=== PATIENT | female | born 1945 | race Caucasian/White ===

== ENCOUNTER → 2017-12-23 | Outpatient (CLI) | payer OTHER ==
[~2017-12-23] MED LIST: WARF5
[2017-12-26 10:32] LABS: HPV Genotype 16 Not Detected (NOTDET); HPV Genotype 18 Not Detected (NOTDET)
[2017-12-30 11:10] LABS: HPV High Risk Other Not Detected (NOTDET)
== END ==
LOC: OLS 13:51 → LAB SHORT 13:51
PROVIDERS: Nurse Practitioner Women's Health
DX: Z12.72 Encounter for screening for malignant neoplasm of vagina (principal); Z91.89 Other specified personal risk factors, not elsewhere classified
CPT/HCPCS: 87624; G0123

== ENCOUNTER → 2018-09-17 | Outpatient (CLI) | payer OTHER | END | disposition home or self-care (01) | LOC: LAB EV 12:50 → LAB SHORT 12:50 | DX: J02.9 Acute pharyngitis, unspecified (principal) | CPT/HCPCS: 87070 ==

== ENCOUNTER → 2019-08-20 | Outpatient (CLI) | payer OTHER | END | disposition home or self-care (01) | LOC: LAB SHORT 14:45 → LAB EV 14:45 | DX: N39.0 Urinary tract infection, site not specified (principal) | CPT/HCPCS: 87086 ==

== ENCOUNTER → 2021-01-18 | Outpatient (CLI) | payer OTHER | LOC: PLD 14:46 → LAB EV 14:46 → LAB SHORT 14:46 | DX: N39.0 Urinary tract infection, site not specified (principal); Z88.0 Allergy status to penicillin; Z88.5 Allergy status to narcotic agent | CPT/HCPCS: 87077; 87086; 87186 ==

== ENCOUNTER → 2021-01-21 | Outpatient (CLI) | payer OTHER ==
[2021-01-21 14:34] LABS: BASOPHILS ABSOLUTE AUTO 0.04 K/mm3 (0.00-0.23); BASOPHILS PERCENT AUTO 1 % (0-2); EOSINOPHILS ABSOLUTE AUTO 0.03 K/mm3 (0.00-0.68); EOSINOPHILS PERCENT AUTO 0 % (0-6); Hematocrit 49.2 % (33.0-51.0); Hemoglobin 16.9 g/dL (11.5-16.0); IMMATURE GRAN ABSOLUTE AUTO 0.02 K/mm3 (0.00-0.10); IMMATURE GRAN PERCENT AUTO 0 % (0-1); LYMPHOCYTES ABSOLUTE AUTO 1.42 K/mm3 (0.84-5.20); LYMPHOCYTES PERCENT AUTO 21 % (21-46); MONOCYTES ABSOLUTE AUTO 0.39 K/mm3 (0.16-1.47); MONOCYTES PERCENT AUTO 6 % (4-13); Mean Corpuscular HGB 30.8 pg (26.0-34.0); Mean Corpuscular HGB Conc 34.3 g/dL (31.5-36.5); Mean Corpuscular Volume 90 fL (80-100); NEUTROPHILS ABSOLUTE AUTO 4.94 K/mm3 (1.96-9.15); NEUTROPHILS PERCENT AUTO 72 % (41-73); Platelet Count 236 K/mm3 (150-400); RDW Coefficient Variation 12.6 % (11.7-14.2); RDW Standard Deviation 41.6 fL (35.1-46.3); Red Blood Cell Count 5.49 M/mm3 (3.80-5.20); White Blood Cell Count 6.84 K/mm3 (4.00-11.30)
[2021-01-21 14:43] LABS: Albumin, Blood 3.8 g/dL (3.4-5.0); Albumin/Globulin Ratio 1.1 (0.8-1.8); Bilirubin, Total 0.6 mg/dL (0.1-1.0); Bun/Creatinine Ratio 10.3 (12.0-20.0); Calcium, Blood 9.1 mg/dL (8.5-10.1); Creatinine, Blood 0.97 mg/dL (0.40-1.00); Globulin, Blood 3.4 g/dL (2.2-4.0); Potassium, Blood 3.6 mmol/L (3.5-5.5); Total Protein, Blood 7.2 g/dL (6.4-8.2)
== END | disposition home or self-care (01) ==
LOC: LAB EV 14:30 → LAB SHORT 14:30
PROVIDERS: General Practice
DX: R53.81 Other malaise (principal)
CPT/HCPCS: 80053; 85025

== ENCOUNTER → 2021-06-05 | Outpatient (CLI) | payer OTHER | END | disposition home or self-care (01) | LOC: LAB SHORT 17:18 | DX: R10.9 Unspecified abdominal pain (principal) | CPT/HCPCS: 87077; 87086; 87186 ==

== ENCOUNTER 2022-03-16 12:00 | Day surgery (SDC) | payer OTHER ==
[~2022-03-16] VITALS: Ht 154.9 cm; Wt 46.8 kg
[2022-03-16] MEDS ORDERED: PROLIA60 MG/1 ML (12:25)
[2022-03-16] MEDS ORDERED: DULO30 (12:25)
[2022-03-16] MEDS ORDERED: PSEU120ER (12:26)
[2022-03-16] MEDS ORDERED: LORA10ER (12:26)
[2022-03-16] MEDS ORDERED: MELO7.5 (12:26)
[2022-03-16] MEDS ORDERED: ACET325 (12:27)
== END 2022-03-16 14:11 | disposition home or self-care (01) ==
LOC: ORSCSDS 12:00
PROVIDERS: Internal Medicine Gastroenterology
PROC: 0DBM8ZX Excision of Descending Colon, Via Natural or Artificial Opening Endoscopic, Diagnostic (ICD-10-PCS; principal; 2022-03-16 13:15)
DX: Z12.11 Encounter for screening for malignant neoplasm of colon (principal); Z85.048 Personal history of other malignant neoplasm of rectum, rectosigmoid junction, and anus; D12.4 Benign neoplasm of descending colon; K57.30 Diverticulosis of large intestine without perforation or abscess without bleeding; Z79.82 Long term (current) use of aspirin; Z79.899 Other long term (current) drug therapy
CPT/HCPCS: 88305; J2704; J7120

== ENCOUNTER 2022-07-06 11:06 | Emergency (ER) | payer OTHER ==
[~2022-07-06] VITALS: Ht 152.4 cm; Wt 47.2 kg
[~2022-07-06 11:06] MED LIST changes: +ACET325; +DULO30; +LORA10ER; +MELO7.5; +PROLIA60 MG/1 ML; +PSEU120ER
[2022-07-06 11:50] LABS: BASOPHILS ABSOLUTE AUTO 0.03 K/mm3 (0.00-0.23); BASOPHILS PERCENT AUTO 0 % (0-2); EOSINOPHILS PERCENT AUTO 0 % (0-6); Hematocrit 44.5 % (33.0-51.0); Hemoglobin 15.3 g/dL (11.5-16.0); IMMATURE GRAN ABSOLUTE AUTO 0.08 K/mm3 (0.00-0.10); IMMATURE GRAN PERCENT AUTO 1 % (0-1); LYMPHOCYTES ABSOLUTE AUTO 0.87 K/mm3 (0.84-5.20); LYMPHOCYTES PERCENT AUTO 5 % (21-46); MONOCYTES ABSOLUTE AUTO 0.77 K/mm3 (0.16-1.47); MONOCYTES PERCENT AUTO 4 % (4-13); Mean Corpuscular HGB 31.5 pg (26.0-34.0); Mean Corpuscular HGB Conc 34.4 g/dL (31.5-36.5); Mean Corpuscular Volume 92 fL (80-100); Mean Platelet Volume 10.2 fL (9.1-12.4); NEUTROPHILS ABSOLUTE AUTO 15.84 K/mm3 (1.96-9.15); NEUTROPHILS PERCENT AUTO 90 % (41-73); Platelet Count 269 K/mm3 (150-400); RDW Coefficient Variation 12.9 % (11.7-14.2); RDW Standard Deviation 43.5 fL (35.1-46.3); Red Blood Cell Count 4.86 M/mm3 (3.80-5.20); White Blood Cell Count 17.59 K/mm3 (4.00-11.30)
[2022-07-06 12:02] LABS: Albumin, Blood 3.3 g/dL (3.4-5.0); Bun/Creatinine Ratio 17.7 (12.0-20.0); Calcium, Blood 8.7 mg/dL (8.5-10.1); Creatinine, Blood 1.24 mg/dL (0.40-1.00); Globulin, Blood 3.3 g/dL (2.2-4.0); Potassium, Blood 4.4 mmol/L (3.5-5.5); Total Protein, Blood 6.6 g/dL (6.4-8.2)
[2022-07-06 12:25] LABS: Source, Urine Foley catheter
[2022-07-06 12:34] LABS: Appearance, Urine Clear (Clear); Bilirubin, Urine Neg (Neg); Blood, Urine 5+ (Neg); Color, Urine Amber (P-Yellow); Glucose Qualitative, Urine Neg (Neg); Ketones, Urine Neg (Neg); Leukocyte Esterase, Urine 3+ (Neg); Nitrite, Urine Neg (Neg); Protein, Urine 3+ (Neg); Urobilinogen, Urine NORM (Normal); pH, Urine 6.5 (5.0-8.0)
[2022-07-06 12:55] LABS: Red Blood Cells, Urine TNTC /hpf (0-2); White Blood Cells, Urine 25-50 /hpf (0-5)
[2022-07-06 12:56] LABS: Bacteria Mod /hpf; Squamous Epithelial Cells Not Seen /hpf (Few); Transitional Epithelial Cells Few /hpf (0-Rare)
[2022-07-06 14:27] LABS: Influenza A, PCR NEGATIVE (NEGATIVE); Influenza B, PCR NEGATIVE (NEGATIVE); Resp Syncytial Virus, PCR NEGATIVE (NEGATIVE); SARS-Cov-2 (COVID-19) PCR, MMC NEGATIVE (NEGATIVE)
[2022-07-06 15:02] LABS: BASOPHILS ABSOLUTE AUTO 0.02 K/mm3 (0.00-0.23); BASOPHILS PERCENT AUTO 0 % (0-2); EOSINOPHILS PERCENT AUTO 0 % (0-6); Hematocrit 39.8 % (33.0-51.0); Hemoglobin 13.5 g/dL (11.5-16.0); IMMATURE GRAN ABSOLUTE AUTO 0.05 K/mm3 (0.00-0.10); IMMATURE GRAN PERCENT AUTO 0 % (0-1); LYMPHOCYTES ABSOLUTE AUTO 1.11 K/mm3 (0.84-5.20); LYMPHOCYTES PERCENT AUTO 8 % (21-46); MONOCYTES ABSOLUTE AUTO 0.68 K/mm3 (0.16-1.47); MONOCYTES PERCENT AUTO 5 % (4-13); Mean Corpuscular HGB 31.1 pg (26.0-34.0); Mean Corpuscular HGB Conc 33.9 g/dL (31.5-36.5); Mean Corpuscular Volume 92 fL (80-100); Mean Platelet Volume 10.5 fL (9.1-12.4); NEUTROPHILS ABSOLUTE AUTO 12.61 K/mm3 (1.96-9.15); NEUTROPHILS PERCENT AUTO 87 % (41-73); Platelet Count 210 K/mm3 (150-400); RDW Coefficient Variation 12.8 % (11.7-14.2); RDW Standard Deviation 43.2 fL (35.1-46.3); Red Blood Cell Count 4.34 M/mm3 (3.80-5.20); White Blood Cell Count 14.47 K/mm3 (4.00-11.30)
[2022-07-06 15:21] LABS: Albumin, Blood 2.8 g/dL (3.4-5.0); Albumin/Globulin Ratio 0.9 (0.8-1.8); Bilirubin, Total 0.9 mg/dL (0.1-1.0); Bun/Creatinine Ratio 19.8 (12.0-20.0); Calcium, Blood 8.6 mg/dL (8.5-10.1); Creatinine, Blood 1.01 mg/dL (0.40-1.00); Globulin, Blood 3.1 g/dL (2.2-4.0); Potassium, Blood 4.1 mmol/L (3.5-5.5); Total Protein, Blood 5.9 g/dL (6.4-8.2)
[2022-07-06] MEDS ORDERED: OXAYDO5 M1 PO (15:49)
[2022-07-06] MEDS ORDERED: SULTRIDS PO (15:49)
== END 2022-07-06 16:29 | disposition home or self-care (01) ==
LOC: ER 11:06
PROVIDERS: Student in an Organized Health Care Education/Training Program
DX: G89.18 Other acute postprocedural pain (principal); R50.82 Postprocedural fever; N39.0 Urinary tract infection, site not specified; D72.829 Elevated white blood cell count, unspecified; Z88.0 Allergy status to penicillin; Z88.5 Allergy status to narcotic agent; Z79.899 Other long term (current) drug therapy; Z20.822 Contact with and (suspected) exposure to COVID-19
CPT/HCPCS: 0241U; 36415; 71045; 80053; 81001; 83605; 85025; 87086; A9270; J0696; J3010; J7030

== ENCOUNTER → 2022-07-27 | Outpatient (CLI) | payer OTHER ==
[~2022-07-27] MED LIST changes: +OXAYDO5 M1 PO; +SULTRIDS PO
== END | disposition home or self-care (01) ==
DX: N39.0 Urinary tract infection, site not specified (principal)

== ENCOUNTER → 2022-08-07 | Outpatient (CLI) | payer OTHER | END | disposition home or self-care (01) | LOC: LAB SHORT 13:24 → LAB 13:24 | DX: N39.0 Urinary tract infection, site not specified (principal) | CPT/HCPCS: 87077; 87086; 87186 ==

== ENCOUNTER 2023-04-22 14:39 | Inpatient (IN) | payer OTHER ==
[~2023-04-22] VITALS: Ht 154.9 cm; Wt 48.0 kg
[2023-04-22 15:18] LABS: BASOPHILS ABSOLUTE AUTO 0.03 K/mm3 (0.00-0.23); BASOPHILS PERCENT AUTO 0 % (0-2); EOSINOPHILS ABSOLUTE AUTO 0.06 K/mm3 (0.00-0.68); EOSINOPHILS PERCENT AUTO 1 % (0-6); Hematocrit 36.4 % (33.0-51.0); Hemoglobin 12.5 g/dL (11.5-16.0); IMMATURE GRAN ABSOLUTE AUTO 0.15 K/mm3 (0.00-0.10); IMMATURE GRAN PERCENT AUTO 2 % (0-1); LYMPHOCYTES ABSOLUTE AUTO 0.57 K/mm3 (0.84-5.20); LYMPHOCYTES PERCENT AUTO 7 % (21-46); MONOCYTES ABSOLUTE AUTO 0.81 K/mm3 (0.16-1.47); MONOCYTES PERCENT AUTO 10 % (4-13); Mean Corpuscular HGB 30.7 pg (26.0-34.0); Mean Corpuscular HGB Conc 34.3 g/dL (31.5-36.5); Mean Corpuscular Volume 89 fL (80-100); Mean Platelet Volume 11.4 fL (9.1-12.4); NEUTROPHILS ABSOLUTE AUTO 6.28 K/mm3 (1.96-9.15); NEUTROPHILS PERCENT AUTO 79 % (41-73); Platelet Count 143 K/mm3 (150-400); RDW Coefficient Variation 13.5 % (11.7-14.2); RDW Standard Deviation 44.6 fL (35.1-46.3); Red Blood Cell Count 4.07 M/mm3 (3.80-5.20)
[2023-04-22 15:21] LABS: Source, Urine Clean Catch
[2023-04-22 15:25] LABS: Appearance, Urine Cloudy (Clear); Bilirubin, Urine Neg (Neg); Blood, Urine 5+ (Neg); Color, Urine Yellow (P-Yellow); Glucose Qualitative, Urine Neg (Neg); Ketones, Urine Neg (Neg); Leukocyte Esterase, Urine 3+ (Neg); Nitrite, Urine Neg (Neg); Protein, Urine 3+ (Neg); Urobilinogen, Urine NORM (Normal)
[2023-04-22 15:34] LABS: Albumin, Blood 2.4 g/dL (3.4-5.0); Albumin/Globulin Ratio 0.6 (0.8-1.8); Bilirubin, Total 0.9 mg/dL (0.1-1.0); Calcium, Blood 8.4 mg/dL (8.5-10.1); Creatinine, Blood 3.26 mg/dL (0.40-1.00); Potassium, Blood 4.4 mmol/L (3.5-5.5); Total Protein, Blood 6.4 g/dL (6.4-8.2)
[2023-04-22 15:49] LABS: Bacteria Many /hpf; Red Blood Cells, Urine TNTC /hpf (0-2); Squamous Epithelial Cells Few /hpf (Few); White Blood Cells, Urine TNTC /hpf (0-5)
[2023-04-22] MEDS ORDERED: ONDA4 PO (18:28)
[2023-04-22] MEDS ORDERED: LOSARTAN POTASS25 M2 PO (18:28)
[2023-04-22] MEDS ORDERED: ARIPIPRAZOLE2 M1 PO (18:28)
[2023-04-22] MEDS ORDERED: TRAM50 (18:29)
[2023-04-22] MEDS ORDERED: SPIRIVA RESPIMAT4 G3 IH (18:29)
[2023-04-22] MEDS ORDERED: CYMBALTA30 M2 PO (18:29)
[2023-04-22 23:47] VITALS: BP 150/83
[2023-04-23] VITALS (11 sets, daily range): BP systolic 100–151; BP diastolic 45–91
--- NOTE | 2023-04-23 01:30 | NUR ---
ARRIVAL TO PCU: RECEIVED REPORT FROM RN ANESTHETIST BEBA ELAM ~2331 ON 04/22/23, PT SHORTLY ARRIVED TO PCU. ARRIVED VIA GURNEY, SBA TRANSFER TO PCU BED. A/Ox4 AND COOPERATIVE WITH CARE. ANSWERS QUESTIONS APPROPRIATELY AND ABLE TO MAKE HER NEED KNOWN. PERRLA WITH GROSS MOVEMENTS/STRENGTH EQUAL BILAT. DENIES TINGLING OR SENSATION LOSS. CARDIAC, TELE MONITOR SHOWS SR 70-90'S WIHT NO C/O CP OR PRESSURE. REPORTS INTERMITTENT EPISODES OF DIZZINESS HOWEVER. SBP STABLE RANGING 110-150'S. RESPIRATORY, MAINTAINS SPO2 >94% ON RA WITH NO REPORTS OF SOB OR DYSPNEA EVEN WITH ABULATION. LS CLEAR T/O ALL LUNG SILVA. GI/, REPORTS LEFT FLANK/ABD PAIN, ABD SOFT BUT TENDER TO PALPITATION. LAST REPORTS BM ON 04/18/23. ABLE VOID CLOUDY/JENNY COLORED URINE. UA COLLECTED IN ER WITH CULTURE PENDING RESULTS. ABLE TO WALK W/O STAFF ASSIST, BUT REPORTS SOME INTERMITTENT UNSTEADNIESS. WILL MAKE SBA FOR SAFETY PRECAUTIONS. PER RN ANESTHETIST REPORTS, DR. JACOBSON CONSULTED IN ER FOR POSSIBLE PROCEDURE TOMORROW. PAIN MANAGED PER EMAR. NS INFUSING ORDERED VIA EMAR. ASSESSED PT FOR RISKS OF ANY IGNITION SOURCES WELL BEHAVIORS FOR INCREASED RISKS OF FIRE DANGER. PT EDUCATED ON COMMON SOURCES OF IGNITION WELL NEED TO KEEP A SAFE ENVIRONMENT. PT VOICED UNDERSTANDING. WILL CONTINUE TO PROCESS MD ORDERS. DAYDAY MINOR UPON ARRIVAL TO PCU
[2023-04-23 03:54] LABS: BASOPHILS ABSOLUTE AUTO 0.03 K/mm3 (0.00-0.23); BASOPHILS PERCENT AUTO 0 % (0-2); EOSINOPHILS ABSOLUTE AUTO 0.05 K/mm3 (0.00-0.68); EOSINOPHILS PERCENT AUTO 1 % (0-6); Hematocrit 32.4 % (33.0-51.0); Hemoglobin 10.9 g/dL (11.5-16.0); IMMATURE GRAN ABSOLUTE AUTO 0.18 K/mm3 (0.00-0.10); IMMATURE GRAN PERCENT AUTO 2 % (0-1); LYMPHOCYTES ABSOLUTE AUTO 0.49 K/mm3 (0.84-5.20); LYMPHOCYTES PERCENT AUTO 6 % (21-46); MONOCYTES PERCENT AUTO 11 % (4-13); Mean Corpuscular HGB 30.2 pg (26.0-34.0); Mean Corpuscular HGB Conc 33.6 g/dL (31.5-36.5); Mean Corpuscular Volume 90 fL (80-100); Mean Platelet Volume 11.5 fL (9.1-12.4); NEUTROPHILS ABSOLUTE AUTO 6.78 K/mm3 (1.96-9.15); NEUTROPHILS PERCENT AUTO 80 % (41-73); Platelet Count 143 K/mm3 (150-400); RDW Coefficient Variation 13.3 % (11.7-14.2); RDW Standard Deviation 44.6 fL (35.1-46.3); Red Blood Cell Count 3.61 M/mm3 (3.80-5.20); White Blood Cell Count 8.43 K/mm3 (4.00-11.30)
[2023-04-23 04:22] LABS: Albumin/Globulin Ratio 0.6 (0.8-1.8); Bilirubin, Total 0.6 mg/dL (0.1-1.0); Bun/Creatinine Ratio 19.7 (12.0-20.0); Calcium, Blood 7.7 mg/dL (8.5-10.1); Creatinine, Blood 2.99 mg/dL (0.40-1.00); Globulin, Blood 3.1 g/dL (2.2-4.0); Potassium, Blood 3.9 mmol/L (3.5-5.5); Total Protein, Blood 5.1 g/dL (6.4-8.2)
--- NOTE | 2023-04-23 05:16 | NUR ---
SHIFT SUMMARY NO ACUTE CHANGES FROM ARRIVAL TO PCU NOTE. SEE NOTE FOR MORE DETAILS. PT MADE NPO FOR POTENTIAL PROCEDURE THIS AM WITH DR. Massey. HAS BEEN NPO SINCE MDN IN LIGHT OF THIS PLAN OF CARE. PT UPDATED ON PLAN OF CARE WITH ALL QUESTIONS ANSWERED. NS RUNNING AT 100ML/HR PER EMAR. PAIN MANAGED WELL WITH PRN TYLENOL. NO NEW ORDERS AT THIS TIME, WILL REPORT TO ONCOMING RN. DAYDAY MINOR OF THIS NOTE.
--- NOTE | 2023-04-23 17:57 | NUR ---
SHIFT SUMMARY; ASSUMED CARE AT 0700. A/A/OX4, AMBULATES WITH SBA, VSS. REPOSITIONS SELF IN BED NEEDED, USES CALL LIGHT AND ABLE TO MAKE NEEDS KNOWN. LEFT NEPHROSTOMY PLACED TODAY, DRAINING PINK/REDISH URINE. DRESSING TO SITE C/D/I. FAMILY AT BEDSIDE DURING SHIFT. WILL CONTINUE TO MONITOR AND TREAT UNTIL CHANGE OF SHIFT.
[2023-04-24 04:23] VITALS: BP 151/75
--- NOTE | 2023-04-24 06:54 | NUR ---
SHIFT SUMMARY PATIENT ALERT AND ORIENTED X4, INDEPENDENT IN HER ROOM. PATIENT MEDICATED PER EMAR FOR PAIN. PATIENT'S L NEPHROSTOMY IS PATENT AND DRAINING JENNY URINE. PATIENT WAS CONCERNED SHE HAS BEEN UNABLE TO URINATE SINCE YESTERDAY AFTERNOON. THIS RN BLADDER SCANNED THE PATIENT AND THERE WAS 0 ML IN HER BLADDER. SPO2>90% ON ROOM AIR, PATIENT HAD NO COMPLAINTS OF SHORTNESS OF BREATH. VITAL SIGNS STABLE, SINUS RHHYTHM IN THE 70'S ON TELE. NO ACUTE ISSUES NOTED OVERNIGHT. WILL CONTINUE TO MONITOR. CALL LIGHT WITHIN REACH.
[2023-04-24 07:21] VITALS: BP 140/75
--- NOTE | 2023-04-24 08:47 | NUR ---
ASSUMPTION OF CARE ASSUMED CARE AROUND 0700. VSS. PATIENT AFFECT IS PLEASANT, AOX4. POST OP DAY 1 FOR L NEPHROSTOMY W/ STENT. DRESSING C/D/I WITH MODERATE SEROSANGUINOUS DRAINAGE. PT REPORTS MILD L FLANK PAIN, PLAN TO IMPLEMENT PHARMACOLOGICAL AND NONPHARMACOLOGICAL INTERVENTIONS PRN. TOLERATING PO INTAKE. URINE IN NEPHROSTOMY BAG IS JENNY IN COLOR W/ NO ODOR. NO NEEDS AT THIS TIME. CALL LIGHT IS WITHIN REACH.
[2023-04-24 09:28] LABS: Albumin, Blood 2.2 g/dL (3.4-5.0); Anion Gap 7 mmol/L (6-16); Blood Urea Nitrogen 54 mg/dL (8-24); Bun/Creatinine Ratio 16.2 (12.0-20.0); CO2, Blood 25 mmol/L (21-32); Calcium, Blood 8.3 mg/dL (8.5-10.1); Chloride, Blood 112 mmol/L (98-108); Creatinine, Blood 3.33 mg/dL (0.40-1.00); Glomerular Filtration Rate 14 (60-); Glucose, Blood 139 mg/dL (70-99); Phosphorus, Blood 2.2 mg/dL (2.5-4.9); Sodium, Blood 144 mmol/L (136-145)
[2023-04-24 11:38] VITALS: BP 158/77
[2023-04-24 15:40] VITALS: BP 144/63
--- NOTE | 2023-04-24 18:27 | NUR ---
SHIFT SUMMARY NO ACUTE CHANGES THIS SHIFT. VSS. AOX4, EASILY AROUSABLE TO VERBAL STIMULI. L NEPHROSTOMY DRAINING JENNY URINE. PT OOB WITH SBA FROM STAFF. INDEPENDENT W/ PERSONAL CARE, SHOWERED TODAY. PAIN TOLERABLE WITH ORDERED DOSE OF TYLENOL. TOLERATING PO INTAKE. VISITORS AT BEDSIDE T/O SHIFT. CALL LIGHT WITHIN REACH. WILL REPORT TO ONCOMING RN.
[2023-04-24 21:54] VITALS: BP 130/71
[2023-04-24 23:50] VITALS: BP 137/63
[2023-04-25 04:13] LABS: BASOPHILS ABSOLUTE AUTO 0.03 K/mm3 (0.00-0.23); BASOPHILS PERCENT AUTO 0 % (0-2); EOSINOPHILS ABSOLUTE AUTO 0.15 K/mm3 (0.00-0.68); EOSINOPHILS PERCENT AUTO 2 % (0-6); Hematocrit 31.1 % (33.0-51.0); Hemoglobin 10.8 g/dL (11.5-16.0); IMMATURE GRAN ABSOLUTE AUTO 0.45 K/mm3 (0.00-0.10); IMMATURE GRAN PERCENT AUTO 5 % (0-1); LYMPHOCYTES ABSOLUTE AUTO 0.99 K/mm3 (0.84-5.20); LYMPHOCYTES PERCENT AUTO 11 % (21-46); MONOCYTES PERCENT AUTO 6 % (4-13); Mean Corpuscular HGB 30.4 pg (26.0-34.0); Mean Corpuscular HGB Conc 34.7 g/dL (31.5-36.5); Mean Corpuscular Volume 88 fL (80-100); Mean Platelet Volume 10.7 fL (9.1-12.4); NEUTROPHILS PERCENT AUTO 76 % (41-73); Platelet Count 275 K/mm3 (150-400); RDW Coefficient Variation 14.1 % (11.7-14.2); RDW Standard Deviation 45.3 fL (35.1-46.3); Red Blood Cell Count 3.55 M/mm3 (3.80-5.20); White Blood Cell Count 9.42 K/mm3 (4.00-11.30)
[2023-04-25 04:33] LABS: Anion Gap 6 mmol/L (6-16); Blood Urea Nitrogen 47 mg/dL (8-24); Bun/Creatinine Ratio 17.7 (12.0-20.0); CO2, Blood 24 mmol/L (21-32); Chloride, Blood 114 mmol/L (98-108); Creatinine, Blood 2.65 mg/dL (0.40-1.00); Glomerular Filtration Rate 18 (60-); Glucose, Blood 106 mg/dL (70-99); Phosphorus, Blood 3.2 mg/dL (2.5-4.9); Potassium, Blood 4.3 mmol/L (3.5-5.5); Sodium, Blood 144 mmol/L (136-145)
[2023-04-25 04:57] VITALS: BP 138/72
--- NOTE | 2023-04-25 06:58 | NUR ---
SHIFT SUMMARY PATIENT ALERT AND ORIENTED X4, INDEPENDENT IN HER ROOM. PATIENT MEDICATED PER EMAR FOR PAIN. ON ROOM AIR. VITAL SIGNS STABLE. NEPHROSTOMY DRAINING CLEAR, YELLOW URINE. NO ACUTE ISSUES NOTED OVERNIGHT. WILL CONTINUE TO MONITOR. CALL LIGHT WITHIN REACH.
[2023-04-25 07:51] VITALS: BP 146/78
--- NOTE | 2023-04-25 09:17 | NUR ---
ASSUMPTION OF CARE ASSUMED PATIENT CARE AT 0700. PT AOX4, EASILY AROUSABLE TO VERBAL STIMULI. PT IS PLEASANT, RECEPTIVE TO EDUCATION. CAN BE FORGETFUL AT TIMES. POD 2 L NEPHRECTOMY W/ STENT PLACEMENT. SITE IS C/D/I W/ A TEGADERM DRESSING, MILD SEROSANGUINOUS DRAINAGE. NEPHROSTOMY IS DRAINING YELLOW URINE. PT TOLERATING PO INTAKE, REPORTS A LACK OF APPETITE. PT COMPLAINING OF PAIN IN THE L FLANK RELATED TO NEPHROSTOMY PLACEMENT AND GENERALIZED BODY ACHES, MEDICATED PER EMAR W/ TYLENOL. PLAN IS TO DC HOME TODAY. NO NEEDS AT THIS TIME, CALL LIGHT WITHIN REACH
[2023-04-25] MEDS ORDERED: LEVFLO500 PO (10:41)
[2023-04-25] MEDS ORDERED: VISBIOME 112.51 EACH PO (10:41)
--- NOTE | 2023-04-25 11:15 | NUR ---
DISCHARGE SUMMARY PLACED ORDER FOR DISCHARGE. EDUCATION PROVIDED REGARDING MEDICATIONS AND PLAN FOR CONTINUED CARE OUTSIDE OF HOSPITAL. PT AGREES W/ PLAN, RECEPTIVE TO EDUCATION AND ASKED QUESTIONS. RMVD IV. PERSONAL BELONGINGS RETURNED TO PT. DRAINED NEPHROSTOMY BAG, RMVD TELE. FRIEND AT BEDSIDE, RECEPTIVE TO EDUCATION WELL AND IS DRIVING HER HOME. PT TRANSFERRED TO PERSONAL VEHICLE VIA WHEELCHAIR.
== END 2023-04-25 11:16 | disposition home or self-care (01) | DRG 690 ==
LOC: ER 14:39 → PCU 23:29
PROVIDERS: Family Medicine; Physician Assistant; ADMIT Internal Medicine
PROC: 0T773DZ Dilation of Left Ureter with Intraluminal Device, Percutaneous Approach (ICD-10-PCS; principal; 2023-04-23)
PROC: 0T9430Z Drainage of Left Kidney Pelvis with Drainage Device, Percutaneous Approach (ICD-10-PCS; 2023-04-23)
PROC: BT1F1ZZ Fluoroscopy of Left Kidney, Ureter and Bladder using Low Osmolar Contrast (ICD-10-PCS; 2023-04-23)
DX: N13.6 Pyonephrosis (principal); N17.9 Acute kidney failure, unspecified; N32.0 Bladder-neck obstruction; N18.9 Chronic kidney disease, unspecified; B96.20 Unspecified Escherichia coli [E. coli] as the cause of diseases classified elsewhere; Z85.528 Personal history of other malignant neoplasm of kidney; Z90.5 Acquired absence of kidney; Z85.3 Personal history of malignant neoplasm of breast; Z88.0 Allergy status to penicillin; Z88.5 Allergy status to narcotic agent; Z90.710 Acquired absence of both cervix and uterus; Z98.890 Other specified postprocedural states; Z79.899 Other long term (current) drug therapy; Z90.2 Acquired absence of lung [part of]; Z92.3 Personal history of irradiation; Z92.21 Personal history of antineoplastic chemotherapy; Z85.51 Personal history of malignant neoplasm of bladder
CPT/HCPCS: 36415; 50695; 74176; 76937; 80053; 80069; 81001; 85025; 87077; 87086; 87186; 94640; 94664; 94760; 96365; 96366; 96375; 99152; 99153; 99285-25; A9270; C1729; C1769; C1887; C1894; C2617; J0696; J1170; J2250; J3010; J7030; J7040; J7050; Q9967

== ENCOUNTER 2023-06-25 13:59 | Inpatient (IN) | payer OTHER ==
[~2023-06-25] VITALS: Ht 152.4 cm; Wt 47.1 kg
[~2023-06-25 13:59] MED LIST changes: -LOKELMA10 GM PO
[2023-06-25 17:11] LABS: Albumin, Blood 3.1 g/dL (3.4-5.0); Albumin/Globulin Ratio 0.9 (0.8-1.8); Bilirubin, Total 0.3 mg/dL (0.1-1.0); Bun/Creatinine Ratio 15.5 (12.0-20.0); Calcium, Blood 9.5 mg/dL (8.5-10.1); Creatinine, Blood 2.65 mg/dL (0.40-1.00); Globulin, Blood 3.3 g/dL (2.2-4.0); Potassium, Blood 6.1 mmol/L (3.5-5.5); Total Protein, Blood 6.4 g/dL (6.4-8.2)
[2023-06-25] MEDS ORDERED: DULO30 (21:24)
[2023-06-25 21:30] LABS: Bun/Creatinine Ratio 16.1 (12.0-20.0); Calcium, Blood 9.8 mg/dL (8.5-10.1); Creatinine, Blood 2.67 mg/dL (0.40-1.00); Potassium, Blood 5.1 mmol/L (3.5-5.5)
--- NOTE | 2023-06-25 22:11 | NUR ---
ADMIT NOTE *LATE ENTRY* PT ARRIVED TO FLOOR VIA GURNEY. PERSONAL POSSESSIONS WITH PATIENT. PATIENT ORIENTED TO UNIT. CALL BUTTON WITHIN REACH. LEFT NEPHROSTOMY TUBE IS NOT DRAINING, HOWEVER SHE IS ABLE TO URINATE. WE HAVE PUT A HAT IN THE TOILET TO MEASURE HER OUTPUT. TELEMETRY IS IN PLACE: TACHY @ 110.
--- NOTE | 2023-06-26 04:19 | NUR ---
SHIFT SUMMARY ADMITTED FOR MALFUNCTIONING LEFT NEPHROSTOMY. FULL CODE. PLAN IS FOR IR CONSULT TO REPLACE THE TUBE IF INDICATED. THIS IS THE PATIENT'S LAST REMAINING KIDNEY. TELEMETRY: NSR @ 95 BPM. SHE WAS HYPERKALEMIC ON ADMIT, BUT IS NOW TRENDING WNL. STANDBY ASSIST - BRP. NS INFUSING ORDERED. SHE LIVES AT HOME WITH HER . SHE IS A&O X4, ON RA. HX: OF BREAST, ANAL, RENAL, AND BLADDER CANCER.
[2023-06-26 05:28] VITALS: BP 147/73
[2023-06-26 06:09] LABS: Calcium, Blood 9.6 mg/dL (8.5-10.1); Creatinine, Blood 2.63 mg/dL (0.40-1.00); Potassium, Blood 6.1 mmol/L (3.5-5.5)
[2023-06-26 07:31] VITALS: BP 167/69
[2023-06-26 12:17] LABS: Bun/Creatinine Ratio 13.1 (12.0-20.0); Calcium, Blood 10.2 mg/dL (8.5-10.1); Creatinine, Blood 2.98 mg/dL (0.40-1.00); Potassium, Blood 6.2 mmol/L (3.5-5.5)
--- NOTE | 2023-06-26 12:33 | NUR ---
LAB CALLED WITH CRITICAL POTASSIUM OF 6.2 AT 1217 CALLED AND REPORTED VALUE TO DR. CISNEROS AWAITING ORDERS
--- NOTE | 2023-06-26 13:45 | NUR ---
Spiritual care visit conducted. Patient is lying in bed and alert. PAtient's spouse, Sulaiman is bedside. They share about the horrible year that she has had in terms of medical challenges and the difficult place that she currently finds herself in. They speak of their Christain sam, their strength together as a team and deep love that the patient has for her daughter. She expresses that she wishes that she could come to [place] to help her but she has to wait until patient's visit to [facility] before it would make sense for her dtr to travel here. Vicente talks about the many diseases she has overcome and that she still has fight for this one. I normalize their experience, reinforce helpful attitudes and practices and provide therapeutic listening and prayer. PAtient and Sulaiman responded well and showed signs of renewed sam and hope for the future. I will continue to remain available to patient and family.
[2023-06-26 15:34] VITALS: BP 163/83
--- NOTE | 2023-06-26 17:38 | NUR ---
SHIFT SUMMARY: PT IS A PLEASANT AND COOPERATIVE 77 YEAR OLD FEMALE HERE FOR HYPERKALEMIA RELATED TO KIDNEY DYSFUNCTION. 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 SHE HAS A NEPHROSTOMY TUBE PLACED IN HER LEFT KIDNEY. SHE STATES THAT SHE WAS HAVING ISSUES WITH IT DRAINING AND UNDERWENT NEW TUBE PLACEMENT TODAY WITH DR. ISABEL. POST PROCEDURE THE PATIENT HAS HAD NO COMPLAINTS AND IS DRAINING WELL; >400 ML AND CLEAR URINE. SHE VOIDS MINIMALLY AND STATES THAT SHE VOIDED THIS AFTERNOON AROUND 1600 WHEN SHE HAD A BOWEL MOVEMENT. SHE CONTINUES TO BE HYPERKALEMIC; PLAN OF CARE IS ONGOING. NO CARDIAC EVENTS DURING THE SHIFT. SHE IS IN BED EATING DINNER VISITING WITH HER AT BEDSIDE AND CALL LIGHT WITHIN REACH. NO SIGNS OF SYMPTOMS OF DISTRESS.
[2023-06-26 19:01] LABS: Calcium, Blood 10.1 mg/dL (8.5-10.1); Creatinine, Blood 3.01 mg/dL (0.40-1.00); Potassium, Blood 5.4 mmol/L (3.5-5.5)
[2023-06-26 19:17] VITALS: BP 172/84
[2023-06-27 04:15] VITALS: BP 156/81
--- NOTE | 2023-06-27 04:51 | NUR ---
SHIFT SUMMARY VSS VERY PLEASENT, AT BESIDE. NEWLY PLACED NEPHROSTOMY TUBE IS DRAINING WELL CLR YELLOW URINE WITH NO BLOOD NOTED. PT HAVING MINIMAL PAIN AND WAS GIVEN TYLENOL. CALL APPROPRIATLY, EMPTIED NEPH TUBE X 3 SO DRAINING WELL.
[2023-06-27 05:10] LABS: BASOPHILS ABSOLUTE AUTO 0.03 K/mm3 (0.00-0.23); BASOPHILS PERCENT AUTO 1 % (0-2); EOSINOPHILS ABSOLUTE AUTO 0.16 K/mm3 (0.00-0.68); EOSINOPHILS PERCENT AUTO 3 % (0-6); Hematocrit 35.4 % (33.0-51.0); Hemoglobin 10.9 g/dL (11.5-16.0); IMMATURE GRAN ABSOLUTE AUTO 0.02 K/mm3 (0.00-0.10); IMMATURE GRAN PERCENT AUTO 0 % (0-1); LYMPHOCYTES ABSOLUTE AUTO 1.12 K/mm3 (0.84-5.20); LYMPHOCYTES PERCENT AUTO 17 % (21-46); MONOCYTES ABSOLUTE AUTO 0.58 K/mm3 (0.16-1.47); MONOCYTES PERCENT AUTO 9 % (4-13); Mean Corpuscular HGB 28.8 pg (26.0-34.0); Mean Corpuscular HGB Conc 30.8 g/dL (31.5-36.5); Mean Corpuscular Volume 94 fL (80-100); Mean Platelet Volume 9.8 fL (9.1-12.4); NEUTROPHILS ABSOLUTE AUTO 4.57 K/mm3 (1.96-9.15); NEUTROPHILS PERCENT AUTO 70 % (41-73); Platelet Count 229 K/mm3 (150-400); RDW Coefficient Variation 15.4 % (11.7-14.2); RDW Standard Deviation 52.5 fL (35.1-46.3); Red Blood Cell Count 3.78 M/mm3 (3.80-5.20); White Blood Cell Count 6.48 K/mm3 (4.00-11.30)
[2023-06-27 05:50] LABS: Albumin, Blood 2.4 g/dL (3.4-5.0); Albumin/Globulin Ratio 0.8 (0.8-1.8); Bilirubin, Total 0.3 mg/dL (0.1-1.0); Bun/Creatinine Ratio 11.5 (12.0-20.0); Calcium, Blood 9.4 mg/dL (8.5-10.1); Creatinine, Blood 2.78 mg/dL (0.40-1.00); Globulin, Blood 2.9 g/dL (2.2-4.0); Potassium, Blood 5.3 mmol/L (3.5-5.5); Total Protein, Blood 5.3 g/dL (6.4-8.2)
[2023-06-27 07:21] VITALS: BP 149/81
[2023-06-27] MEDS ORDERED: LOKELMA10 GM PO (11:05)
--- NOTE | 2023-06-27 11:51 | NUR ---
DISCHARGE NOTE: DISCUSSED DISCHARGE WITH PATIENT WITH AT BEDSIDE. REMOVED HER IV AND TELEMETRY. HER BELONGINGS WERE COLLECTED AND SHE GOT DRESSED. PATIENT TRANSFERRED TO PERSONAL VEHICLE VIA WHEELCHAIR. NO SIGNS OR SYMPTOMS OF DISTRESS DURING DISCHARGE.
== END 2023-06-27 11:38 | disposition home or self-care (01) | DRG 699 ==
LOC: ER 13:59 → MEDS 14:00 → ENPENDDIS 06-27 11:16 → MEDS 06-27 11:38
PROVIDERS: Internal Medicine; Nurse Practitioner Acute Care; Student in an Organized Health Care Education/Training Program; ADMIT Student in an Organized Health Care Education/Training Program
PROC: 0T25X0Z Change Drainage Device in Kidney, External Approach (ICD-10-PCS; principal; 2023-06-26)
DX: N99.522 Malfunction of incontinent external stoma of urinary tract (principal); N13.30 Unspecified hydronephrosis; N17.9 Acute kidney failure, unspecified; E87.5 Hyperkalemia; N18.9 Chronic kidney disease, unspecified; J44.9 Chronic obstructive pulmonary disease, unspecified; F32.A Depression, unspecified; K21.9 Gastro-esophageal reflux disease without esophagitis; Z85.528 Personal history of other malignant neoplasm of kidney; Z90.5 Acquired absence of kidney; Z85.3 Personal history of malignant neoplasm of breast; Z98.890 Other specified postprocedural states; Z88.5 Allergy status to narcotic agent; Z88.0 Allergy status to penicillin; Z79.899 Other long term (current) drug therapy; Z79.2 Long term (current) use of antibiotics; Z90.710 Acquired absence of both cervix and uterus; Y83.8 Other surgical procedures as the cause of abnormal reaction of the patient, or of later complication, without mention of misadventure at the time of the procedure
CPT/HCPCS: 36415; 76770; 80048; 80053; 82947; 83735; 84132; 85025; 93005; 93010; 94640; 94644; 94664; 94760; 96361; 96365; 96374; 96375; 96376; 99152; 99153; 99285-25; A9270; C1729; C1769; G0378; J0612; J1815; J2250; J3010; J7030; J7040; J7799; Q9967

== ENCOUNTER → 2023-06-25 | Outpatient (CLI) | payer OTHER ==
[~2023-06-25] MED LIST changes: +ARIPIPRAZOLE2 M1 PO; +CEPH500 PO; +CYMBALTA30 M2 PO; +Diflucan100 MG PO; +LEVFLO500 PO; +LOKELMA10 GM PO; +LOSARTAN POTASS25 M2 PO; +ONDA4 PO; +SPIRIVA RESPIMAT4 G3 IH; +TRAM50; +VISBIOME 112.51 EACH PO
[2023-06-25 11:43] LABS: BASOPHILS ABSOLUTE AUTO 0.05 K/mm3 (0.00-0.23); BASOPHILS PERCENT AUTO 1 % (0-2); EOSINOPHILS ABSOLUTE AUTO 0.08 K/mm3 (0.00-0.68); EOSINOPHILS PERCENT AUTO 1 % (0-6); Hematocrit 43.3 % (33.0-51.0); Hemoglobin 13.5 g/dL (11.5-16.0); IMMATURE GRAN ABSOLUTE AUTO 0.03 K/mm3 (0.00-0.10); IMMATURE GRAN PERCENT AUTO 0 % (0-1); LYMPHOCYTES ABSOLUTE AUTO 0.98 K/mm3 (0.84-5.20); LYMPHOCYTES PERCENT AUTO 12 % (21-46); MONOCYTES PERCENT AUTO 6 % (4-13); Mean Corpuscular HGB 29.2 pg (26.0-34.0); Mean Corpuscular HGB Conc 31.2 g/dL (31.5-36.5); Mean Corpuscular Volume 94 fL (80-100); Mean Platelet Volume 9.4 fL (9.1-12.4); NEUTROPHILS ABSOLUTE AUTO 6.86 K/mm3 (1.96-9.15); NEUTROPHILS PERCENT AUTO 81 % (41-73); Platelet Count 281 K/mm3 (150-400); RDW Coefficient Variation 15.5 % (11.7-14.2); RDW Standard Deviation 51.5 fL (35.1-46.3); Red Blood Cell Count 4.63 M/mm3 (3.80-5.20)
[2023-06-25 11:58] LABS: Albumin, Blood 3.2 g/dL (3.4-5.0); Anion Gap 8 mmol/L (6-16); Blood Urea Nitrogen 39 mg/dL (8-24); Bun/Creatinine Ratio 14.6 (12.0-20.0); CO2, Blood 24 mmol/L (21-32); Calcium, Blood 9.6 mg/dL (8.5-10.1); Chloride, Blood 104 mmol/L (98-108); Creatinine, Blood 2.68 mg/dL (0.40-1.00); Glomerular Filtration Rate 18 (60-); Glucose, Blood 87 mg/dL (70-99); Phosphorus, Blood 7.2 mg/dL (2.5-4.9); Sodium, Blood 136 mmol/L (136-145)
[2023-06-25 12:01] LABS: Potassium, Blood 6.3 mmol/L (3.5-5.5)
== END | disposition home or self-care (01) ==
LOC: LAB SHORT 11:39 → LAB 11:39
PROVIDERS: Physician Assistant
DX: C65.1 Malignant neoplasm of right renal pelvis (principal); C67.9 Malignant neoplasm of bladder, unspecified
CPT/HCPCS: 80069; 85025

== ENCOUNTER 2023-12-16 16:00 | Inpatient (IN) | payer OTHER ==
[~2023-12-16] VITALS: Ht 152.4 cm; Wt 44.0 kg
[~2023-12-16 16:00] MED LIST changes: +CIPR250 PO; +LOKELMA10 GM PO; +METO10 PO; +SULFAMETHOXAZO1 EAC1 PO
[2023-12-16] MEDS ORDERED: NS 1,000 ML IV SCH ×2 (16:20→23:15)
[2023-12-16] MEDS ORDERED: Ondansetron HCl 2 MG / ML 2ML Vial IV ONE ×2 (16:25→18:05)
[2023-12-16 16:39] LABS: BASOPHILS ABSOLUTE AUTO 0.04 K/mm3 (0.00-0.23); BASOPHILS PERCENT AUTO 0 % (0-2); EOSINOPHILS ABSOLUTE AUTO 0.13 K/mm3 (0.00-0.68); EOSINOPHILS PERCENT AUTO 1 % (0-6); Hematocrit 38.2 % (33.0-51.0); Hemoglobin 12.9 g/dL (11.5-16.0); IMMATURE GRAN ABSOLUTE AUTO 0.09 K/mm3 (0.00-0.10); IMMATURE GRAN PERCENT AUTO 1 % (0-1); LYMPHOCYTES ABSOLUTE AUTO 0.52 K/mm3 (0.84-5.20); LYMPHOCYTES PERCENT AUTO 4 % (21-46); MONOCYTES ABSOLUTE AUTO 0.79 K/mm3 (0.16-1.47); MONOCYTES PERCENT AUTO 6 % (4-13); Mean Corpuscular HGB 30.9 pg (26.0-34.0); Mean Corpuscular HGB Conc 33.8 g/dL (31.5-36.5); Mean Corpuscular Volume 91 fL (80-100); Mean Platelet Volume 9.9 fL (9.1-12.4); NEUTROPHILS PERCENT AUTO 89 % (41-73); Platelet Count 451 K/mm3 (150-400); RDW Coefficient Variation 13.2 % (11.7-14.2); RDW Standard Deviation 44.1 fL (35.1-46.3); Red Blood Cell Count 4.18 M/mm3 (3.80-5.20); White Blood Cell Count 14.17 K/mm3 (4.00-11.30)
[2023-12-16 17:29] LABS: Albumin, Blood 2.7 g/dL (3.4-5.0); Albumin/Globulin Ratio 0.8 (0.8-1.8); Bilirubin, Total 0.3 mg/dL (0.1-1.0); Bun/Creatinine Ratio 19.4 (12.0-20.0); Calcium, Blood 8.3 mg/dL (8.5-10.1); Creatinine, Blood 1.75 mg/dL (0.40-1.00); Globulin, Blood 3.5 g/dL (2.2-4.0); Magnesium, Blood 2.2 mg/dL (1.6-2.4); Potassium, Blood 3.9 mmol/L (3.5-5.5); Total Protein, Blood 6.2 g/dL (6.4-8.2)
[2023-12-16] MEDS ORDERED: HYDROmorphone HCl/Pf 1MG SYR IV ONE ×2 (19:05→21:35)
[2023-12-16] MEDS ORDERED: Prochlorperazine Edisylate 10 mg Vial IV ONE (19:05)
[2023-12-16] MEDS ORDERED: Trimethoprim/Sulfamethoxazole DS Tab PO ONE (21:35)
[2023-12-16] MEDS ORDERED: Ciprofloxacin 400MG/D5 200ML 200 ML IV ONE (21:35)
[2023-12-16] MEDS ORDERED: FentaNYL Citrate 50 MCG/ML 2 ML Injection IV PRN (23:10)
[2023-12-16] MEDS ORDERED: Acetaminophen 325 MG TABLET PO PRN (23:15)
[2023-12-16] MEDS ORDERED: Tiotropium Bromide 2.5 MCG/ACT MIST INHAL (10 ACT/4 GM) INH SCH (23:15)
[2023-12-16] MEDS ORDERED: Albuterol 2.5 MG/3 ML VIAL INH PRN (23:15)
[2023-12-16] MEDS ORDERED: Naloxone HCl 0.4MG / ML 1ML Vial IV PRN (23:15)
[2023-12-16] MEDS ORDERED: HYDROcodone 5-APAP 325 TAB PO PRN (23:20)
[2023-12-16] MEDS ORDERED: Ondansetron HCl 2 MG / ML 2ML Vial IV PRN (23:20)
[2023-12-16] MEDS ORDERED: Piperacillin/Tazobactam Sod 2.25 GM in NS 50 ML IV SCH (23:22)
[2023-12-16 23:52] LABS: Source, Urine Urostomy Bag
[2023-12-17] LABS: Bilirubin, Urine Neg (Neg); Blood, Urine 3+ (Neg); Glucose Qualitative, Urine Neg (Neg); Ketones, Urine 1+ (Neg); Leukocyte Esterase, Urine 3+ (Neg); Nitrite, Urine Pos (Neg); Protein, Urine 3+ (Neg); Urobilinogen, Urine NORM (Normal); pH, Urine 6.5 (5.0-8.0)
[2023-12-17] MEDS ORDERED: Morphine Sulfate 15 MG TABCR PO SCH
[2023-12-17] MEDS ORDERED: LOSARTAN POTASS25 M2 PO (00:09)
[2023-12-17] MEDS ORDERED: ABILIFY MYCITE2 M2 PO (00:09)
[2023-12-17] MEDS ORDERED: CYMBALTA30 M2 PO (00:10)
[2023-12-17] MEDS ORDERED: SPIRIVA RESPIMAT4 G3 INH (00:10)
[2023-12-17] MEDS ORDERED: DULOXETINE HCL60 M1 PO (00:11)
[2023-12-17] MEDS ORDERED: TRAM50 PO (00:11)
[2023-12-17] MEDS ORDERED: FENTANYL1 EA20 TD (00:12)
[2023-12-17] MEDS ORDERED: OXYC10TA19 PO (00:13)
[2023-12-17] MEDS ORDERED: OMEP20ER PO (00:13)
[2023-12-17] MEDS ORDERED: REGLAN1013 PO (00:14)
[2023-12-17] MEDS ORDERED: FENTANYL1 EAC3 TOP (00:14)
[2023-12-17] MEDS ORDERED: INLYTA1 MG PO (00:15)
[2023-12-17] MEDS ORDERED: MS Contin15 MG PO (00:15)
[2023-12-17 00:23] LABS: Appearance, Urine Hazy (Clear); Color, Urine Yellow (P-Yellow)
[2023-12-17 00:24] LABS: Bacteria Mod /hpf; Red Blood Cells, Urine 0-2 /hpf (0-2); Squamous Epithelial Cells Not Seen /hpf (Few)
[2023-12-17 00:45] VITALS: BP 134/65
[2023-12-17] MEDS ORDERED: NS 250 ML IV PRN (01:50)
[2023-12-17] MEDS ORDERED: Piperacillin/Tazobactam Sod 2.25 GM in NS 50 ML IV SCH (02:54)
[2023-12-17 04:58] LABS: Hematocrit 34.9 % (33.0-51.0); Hemoglobin 11.7 g/dL (11.5-16.0); Mean Corpuscular HGB Conc 33.5 g/dL (31.5-36.5); Mean Corpuscular Volume 93 fL (80-100); Mean Platelet Volume 10.1 fL (9.1-12.4); Platelet Count 355 K/mm3 (150-400); RDW Coefficient Variation 13.2 % (11.7-14.2); RDW Standard Deviation 44.2 fL (35.1-46.3); Red Blood Cell Count 3.77 M/mm3 (3.80-5.20); White Blood Cell Count 12.42 K/mm3 (4.00-11.30)
[2023-12-17 05:31] LABS: Bun/Creatinine Ratio 19.1 (12.0-20.0); Calcium, Blood 7.5 mg/dL (8.5-10.1); Creatinine, Blood 1.62 mg/dL (0.40-1.00); Potassium, Blood 3.8 mmol/L (3.5-5.5)
[2023-12-17] MEDS ORDERED: Omeprazole 20 MG CapCR PO SCH (06:30)
[2023-12-17 07:20] VITALS: BP 112/65
[2023-12-17] MEDS ORDERED: ARIPiprazole 2 MG Tablet PO SCH (09:00)
[2023-12-17] MEDS ORDERED: Heparin Sodium,Porcine 5,000 UNIT/0.5 ML SDV SC SCH (09:00)
[2023-12-17 15:56] VITALS: BP 114/62
[2023-12-17 19:36] VITALS: BP 96/53
[2023-12-17] MEDS ORDERED: Sennosides 8.6 MG Tab PO SCH (21:00)
[2023-12-18 02:21] VITALS: BP 99/55
[2023-12-18 07:33] VITALS: BP 100/57
[2023-12-18 09:09] LABS: BASOPHILS ABSOLUTE AUTO 0.02 K/mm3 (0.00-0.23); BASOPHILS PERCENT AUTO 0 % (0-2); EOSINOPHILS ABSOLUTE AUTO 0.24 K/mm3 (0.00-0.68); EOSINOPHILS PERCENT AUTO 3 % (0-6); Hematocrit 32.7 % (33.0-51.0); IMMATURE GRAN ABSOLUTE AUTO 0.09 K/mm3 (0.00-0.10); IMMATURE GRAN PERCENT AUTO 1 % (0-1); LYMPHOCYTES ABSOLUTE AUTO 0.57 K/mm3 (0.84-5.20); LYMPHOCYTES PERCENT AUTO 6 % (21-46); MONOCYTES ABSOLUTE AUTO 0.69 K/mm3 (0.16-1.47); MONOCYTES PERCENT AUTO 7 % (4-13); Mean Corpuscular HGB 31.2 pg (26.0-34.0); Mean Corpuscular HGB Conc 33.6 g/dL (31.5-36.5); Mean Corpuscular Volume 93 fL (80-100); NEUTROPHILS ABSOLUTE AUTO 7.92 K/mm3 (1.96-9.15); NEUTROPHILS PERCENT AUTO 83 % (41-73); Platelet Count 316 K/mm3 (150-400); RDW Coefficient Variation 13.5 % (11.7-14.2); RDW Standard Deviation 45.9 fL (35.1-46.3); Red Blood Cell Count 3.53 M/mm3 (3.80-5.20); White Blood Cell Count 9.53 K/mm3 (4.00-11.30)
[2023-12-18 09:30] LABS: Albumin, Blood 2.1 g/dL (3.4-5.0); Albumin/Globulin Ratio 0.7 (0.8-1.8); Bilirubin, Total 0.2 mg/dL (0.1-1.0); Bun/Creatinine Ratio 17.6 (12.0-20.0); Calcium, Blood 6.8 mg/dL (8.5-10.1); Creatinine, Blood 1.59 mg/dL (0.40-1.00); Globulin, Blood 2.9 g/dL (2.2-4.0); Magnesium, Blood 1.8 mg/dL (1.6-2.4); Phosphorus, Blood 1.1 mg/dL (2.5-4.9); Potassium, Blood 4.1 mmol/L (3.5-5.5)
[2023-12-18] MEDS ORDERED: NS 1,000 ML IV SCH (15:10)
[2023-12-18] MEDS ORDERED: Polyethylene Glycol 3350 17 gm PO PRN (15:10)
[2023-12-18] MEDS ORDERED: OxyCODONE HCL 5 MG TAB PO PRN (15:10)
[2023-12-18] MEDS ORDERED: Potassium Phosphate Dibasic 10 MM in Dextrose 5% 250 ML IV STA (15:16)
[2023-12-18 15:50] VITALS: BP 98/51
[2023-12-18 19:43] VITALS: BP 108/67
[2023-12-18] MEDS ORDERED: AXITINIB 1 MG PO SCH (21:00)
[2023-12-18] MEDS ORDERED: OxyCODONE HCL 10 MG TABCR PO SCH (21:00)
[2023-12-19] MEDS ORDERED: HYDROmorphone HCl/Pf 1MG SYR IV ONE ×2 (01:20→11:00)
[2023-12-19] MEDS ORDERED: HYDROmorphone HCl/Pf 1MG SYR IV PRN ×2 (01:20→11:00)
[2023-12-19 03:02] VITALS: BP 132/66
[2023-12-19] MEDS ORDERED: Calcium Carbonate 500 MG Tab Chew PO PRN (03:25)
[2023-12-19 05:12] LABS: BASOPHILS ABSOLUTE AUTO 0.04 K/mm3 (0.00-0.23); BASOPHILS PERCENT AUTO 0 % (0-2); EOSINOPHILS ABSOLUTE AUTO 0.11 K/mm3 (0.00-0.68); EOSINOPHILS PERCENT AUTO 1 % (0-6); Hemoglobin 11.7 g/dL (11.5-16.0); IMMATURE GRAN ABSOLUTE AUTO 0.22 K/mm3 (0.00-0.10); IMMATURE GRAN PERCENT AUTO 2 % (0-1); LYMPHOCYTES ABSOLUTE AUTO 0.56 K/mm3 (0.84-5.20); LYMPHOCYTES PERCENT AUTO 4 % (21-46); MONOCYTES ABSOLUTE AUTO 0.75 K/mm3 (0.16-1.47); MONOCYTES PERCENT AUTO 6 % (4-13); Mean Corpuscular HGB 30.4 pg (26.0-34.0); Mean Corpuscular HGB Conc 32.5 g/dL (31.5-36.5); Mean Corpuscular Volume 94 fL (80-100); Mean Platelet Volume 9.6 fL (9.1-12.4); NEUTROPHILS ABSOLUTE AUTO 11.08 K/mm3 (1.96-9.15); NEUTROPHILS PERCENT AUTO 87 % (41-73); Platelet Count 348 K/mm3 (150-400); RDW Coefficient Variation 13.6 % (11.7-14.2); RDW Standard Deviation 46.5 fL (35.1-46.3); Red Blood Cell Count 3.85 M/mm3 (3.80-5.20); White Blood Cell Count 12.76 K/mm3 (4.00-11.30)
[2023-12-19 05:36] LABS: Albumin, Blood 2.2 g/dL (3.4-5.0); Albumin/Globulin Ratio 0.7 (0.8-1.8); Bilirubin, Total 0.2 mg/dL (0.1-1.0); Bun/Creatinine Ratio 14.5 (12.0-20.0); Calcium, Blood 7.1 mg/dL (8.5-10.1); Creatinine, Blood 1.66 mg/dL (0.40-1.00); Potassium, Blood 4.4 mmol/L (3.5-5.5); Total Protein, Blood 5.2 g/dL (6.4-8.2)
[2023-12-19 07:23] VITALS: BP 133/70
[2023-12-19] MEDS ORDERED: Morphine Sulfate IR 15 MG Tab PO PRN (10:10)
[2023-12-19] MEDS ORDERED: Morphine Sulfate 15 MG TABCR PO SCH (11:00)
[2023-12-19] MEDS ORDERED: Metoclopramide HCl 5MG / ML 2ML Vial IV PRN (14:20)
[2023-12-19] MEDS ORDERED: Multivitamins 10 ML,ZINC SULF/CUSO4 P-HYD/MN/CR/SE 1 ML in Aa 4.25%/Calcium/Lytes/D5w 1... IV SCH (15:00)
[2023-12-19] MEDS ORDERED: Aa 4.25%/Calcium/Lytes/D5w 1,000 ML IV SCH (15:00)
[2023-12-19] MEDS ORDERED: Potassium Phosphate Dibasic 10 MM in Dextrose 5% 250 ML IV ONE (15:30)
[2023-12-19] MEDS ORDERED: Ondansetron HCl 2 MG / ML 2ML Vial IV SCH (17:30)
[2023-12-19 17:47] VITALS: BP 147/74
[2023-12-19 21:05] VITALS: BP 136/69
[2023-12-20] MEDS ORDERED: Multivitamins 10 ML,ZINC SULF/CUSO4 P-HYD/MN/CR/SE 1 ML in Aa 4.25%/Calcium/Lytes/D5w 1... IV SCH (01:40)
[2023-12-20 04:10] VITALS: BP 130/66
[2023-12-20 06:38] LABS: Albumin, Blood 2.4 g/dL (3.4-5.0); Anion Gap 9 mmol/L (3-11); Blood Urea Nitrogen 22 mg/dL (8-24); Bun/Creatinine Ratio 13.8 (12.0-20.0); CO2, Blood 24 mmol/L (21-32); Calcium, Blood 7.4 mg/dL (8.5-10.1); Chloride, Blood 107 mmol/L (98-108); Glomerular Filtration Rate 33 (60-); Glucose, Blood 135 mg/dL (70-99); Magnesium, Blood 1.8 mg/dL (1.6-2.4); Phosphorus, Blood 2.5 mg/dL (2.5-4.9); Potassium, Blood 4.7 mmol/L (3.5-5.5); Sodium, Blood 135 mmol/L (136-145)
[2023-12-20 07:40] VITALS: BP 134/76
[2023-12-20] MEDS ORDERED: Fat Emulsion 20 % IV 250 ML IV SCH (09:00)
[2023-12-20 09:02] LABS: BASOPHILS ABSOLUTE AUTO 0.05 K/mm3 (0.00-0.23); BASOPHILS PERCENT AUTO 0 % (0-2); EOSINOPHILS ABSOLUTE AUTO 0.07 K/mm3 (0.00-0.68); EOSINOPHILS PERCENT AUTO 0 % (0-6); Hematocrit 37.9 % (33.0-51.0); Hemoglobin 12.3 g/dL (11.5-16.0); IMMATURE GRAN ABSOLUTE AUTO 0.18 K/mm3 (0.00-0.10); IMMATURE GRAN PERCENT AUTO 1 % (0-1); LYMPHOCYTES ABSOLUTE AUTO 0.62 K/mm3 (0.84-5.20); LYMPHOCYTES PERCENT AUTO 4 % (21-46); MONOCYTES ABSOLUTE AUTO 0.97 K/mm3 (0.16-1.47); MONOCYTES PERCENT AUTO 6 % (4-13); Mean Corpuscular HGB 30.6 pg (26.0-34.0); Mean Corpuscular HGB Conc 32.5 g/dL (31.5-36.5); Mean Corpuscular Volume 94 fL (80-100); Mean Platelet Volume 9.8 fL (9.1-12.4); NEUTROPHILS ABSOLUTE AUTO 15.16 K/mm3 (1.96-9.15); NEUTROPHILS PERCENT AUTO 89 % (41-73); Platelet Count 375 K/mm3 (150-400); RDW Coefficient Variation 13.7 % (11.7-14.2); RDW Standard Deviation 47.8 fL (35.1-46.3); Red Blood Cell Count 4.02 M/mm3 (3.80-5.20); White Blood Cell Count 17.05 K/mm3 (4.00-11.30)
[2023-12-20] MEDS ORDERED: Morphine Sulfate 20 MG/1ML 1 ML Oral Syringe SL PRN (13:35)
[2023-12-20] MEDS ORDERED: LORazepam 1 MG Tab PO PRN (13:35)
[2023-12-20] MEDS ORDERED: Promethazine HCl 25 MG Tab PO PRN (13:35)
[2023-12-20] MEDS ORDERED: Promethazine HCl 25 MG Supp PR PRN (13:35)
[2023-12-20] MEDS ORDERED: OxyCODONE HCL 20 MG TABCR PO ONE (14:05)
[2023-12-20 16:06] VITALS: BP 142/75
[2023-12-20 19:33] VITALS: BP 142/73
[2023-12-20] MEDS ORDERED: OxyCODONE HCL 20 MG TABCR PO SCH (21:00)
[2023-12-21 02:45] VITALS: BP 132/66
[2023-12-22] MEDS ORDERED: FentaNYL Citrate 50 MCG/ML 2 ML Injection IV PRN (09:45)
[2023-12-22] MEDS ORDERED: OxyCODONE HCL 15 MG TAB.SR.12H PO SCH (21:00)
[2023-12-22] MEDS ORDERED: Loperamide HCl 2 MG Cap PO PRN (23:50)
[2023-12-22] MEDS ORDERED: Scopolamine Hydrobromide Patch TOP PRN (23:50)
[2023-12-22] MEDS ORDERED: LORazepam 2 MG/ML 1ML Injection IV ONE (23:55)
[2023-12-23] MEDS ORDERED: LORazepam 1 MG Tab PO PRN ×2 (12:40→14:55)
[2023-12-23] MEDS ORDERED: LORazepam 2 MG/ML 1ML Injection IV ONE (12:40)
[2023-12-23] MEDS ORDERED: Morphine Sulfate 4 MG/1 ML Injection IV ONE (12:40)
[2023-12-23] MEDS ORDERED: Acetaminophen 650 MG Supp PR PRN ×2 (13:08→14:55)
[2023-12-23] MEDS ORDERED: OxyCODONE HCl Soln 20 MG/ML 1 ML Oral SYR SL PRN (14:45)
[2023-12-23] MEDS ORDERED: Promethazine HCl 25 MG Supp PR PRN (14:45)
[2023-12-23] MEDS ORDERED: Ondansetron HCl 2 MG / ML 2ML Vial IV PRN (14:50)
[2023-12-23] MEDS ORDERED: LORazepam 2 MG/ML 1ML Injection IV PRN (14:50)
[2023-12-23] MEDS ORDERED: Morphine Sulfate 20 MG/1ML 1 ML Oral Syringe SL PRN (14:50)
[2023-12-23] MEDS ORDERED: Scopolamine Hydrobromide Patch TOP PRN (14:50)
[2023-12-23] MEDS ORDERED: Morphine Sulfate 10 MG/ML 1MLSYR IV PRN (14:50)
[2023-12-23] MEDS ORDERED: Atropine Sulfate 1% Opth Soln 2ML BTL SL PRN (14:55)
[2023-12-23] MEDS ORDERED: Acetaminophen 160MG / 5ML 10.15 UDC PO PRN (14:55)
== END 2023-12-24 16:50 | DRG 698 ==
LOC: ER 16:00 → MEDS 16:01
PROVIDERS: Hospitalist; Internal Medicine; Nurse Practitioner Acute Care; Physician Assistant; Student in an Organized Health Care Education/Training Program; ADMIT Student in an Organized Health Care Education/Training Program
DX: T83.512A Infection and inflammatory reaction due to nephrostomy catheter, initial encounter (principal); A41.9 Sepsis, unspecified organism; C66.2 Malignant neoplasm of left ureter; C78.7 Secondary malignant neoplasm of liver and intrahepatic bile duct; E87.1 Hypo-osmolality and hyponatremia; N39.0 Urinary tract infection, site not specified; C78.6 Secondary malignant neoplasm of retroperitoneum and peritoneum; C77.1 Secondary and unspecified malignant neoplasm of intrathoracic lymph nodes; N18.4 Chronic kidney disease, stage 4 (severe); E44.0 Moderate protein-calorie malnutrition; Z68.1 Body mass index [BMI] 19.9 or less, adult; Z66 Do not resuscitate; Z51.5 Encounter for palliative care; J44.9 Chronic obstructive pulmonary disease, unspecified; F32.A Depression, unspecified; F41.9 Anxiety disorder, unspecified; K21.9 Gastro-esophageal reflux disease without esophagitis; M81.0 Age-related osteoporosis without current pathological fracture; E78.5 Hyperlipidemia, unspecified; Z93.6 Other artificial openings of urinary tract status; Z85.3 Personal history of malignant neoplasm of breast; Z85.528 Personal history of other malignant neoplasm of kidney; Z79.899 Other long term (current) drug therapy; Z85.828 Personal history of other malignant neoplasm of skin; Z90.5 Acquired absence of kidney
CPT/HCPCS: 36415; 74177; 80048; 80053; 80069; 81001; 83605; 83735; 84100; 85025; 85027; 85651; 87077; 87086; 87147; 87186; 92526; 92610; 94640; 94664; 94760; 96361; 96365; 96366; 96372; 96374-59; 96375; 96376; 97110; 97162; 97530; 99284-25; A9270; G0378; J0744; J0780; J1170; J1644; J2060; J2270; J2405; J2543; J2765; J3010; J7030; J7050; J7060; Q9967